=== PATIENT | female | born 1945 | race Caucasian/White ===

== ENCOUNTER → 2016-11-11 | Outpatient (CLI) | payer MEDICARE ==
--- NOTE | 2016-11-11 09:42 | WWHP ---
DATE OF SERVICE: 11/11/2016 CHIEF COMPLAINT: The patient is here for her routine gynecologic exam and mammogram. HPI: This is a 71-year-old G4, P3-0-1-3 with an LMP of 2000. The patient is without gynecologic complaints. PAST MEDICAL HISTORY: Chronic hypertension, arthritis, and osteopenia with focal osteoporosis. She is status post Fosamax use for 5 years. MEDICATIONS: 1. Hydrochlorothiazide 25 mg daily. 2. Lisinopril 20 mg daily. 3. Sulindac 200 mg daily. 4. Calcium 600 mg with vitamin D 1 daily. 5. Centrum Silver vitamin 1 daily. Allergies to PENICILLIN. 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 REVIEW OF SYSTEMS: She has gained about 20 pounds over the last year. She denies respiratory, cardiac, or GI problems. She denies maltreatment. She states she did trip over her dog once this year without serious injury. : She has occasional urinary leakage with coughing or laughing. PHYSICAL EXAM: Blood pressure 115/80. Height 5 feet 2 inches. Weight 258 pounds. Temperature 98.5, pulse 64. This a well-developed, heavyset white female who is alert and oriented x3 in no acute distress. HEENT is within normal limits. NECK: Supple without mass or thyromegaly. CHEST AND LUNGS: Clear to auscultation. HEART: Regular rate and rhythm. Breasts are without mass or discharge. Axillary exam is negative for adenopathy. BACK: Negative for CVA tenderness. ABDOMEN: Obese, soft, nontender, without palpable masses. PELVIC EXAM: External genitalia reveals mild to moderate atrophy without lesions. Cervix and vagina reveal mild to moderate atrophy without lesions. There is no evidence of prolapse. The uterus is midposition, nongravid size and nontender. There are no palpable adnexal masses or tenderness. Rectovaginal exam is negative for mass or tenderness and is negative for occult blood. EXTREMITIES: Nontender. IMPRESSION: 1. A 71-year-old menopausal female with normal gynecologic exam. 2. History of osteopenia with focal osteoporosis, status post 5 years of Fosamax in the past. PLAN: 1. Pap smear was performed. 2. Self breast examination was discussed. 3. Mammogram will be done today. 4. Osteoporosis management was discussed. 5. Bone density testing will be done today. 6. The patient did receive a flu shot earlier in the flu season. 7. She will return in one year.
--- NOTE | 2016-11-11 16:02 | BD ---
EXAMINATION TYPE: MG DEXA axial skeleton. DATE OF EXAM: 11/11/2016 10:13 AM COMPARISON: NONE CLINICAL HISTORY: Height: 5 FT 2 IN Weight: 256 FRAX RISK QUESTIONS: Alcohol (3 or more units per day): NO Family History (Parent hip fracture): NO Glucocorticoids (More than 3mos): NO (Ex: prednisone, prednisolone, methylprednisolone, dexamethasone, and hydrocortisone). History of Fracture in Adulthood: YES Secondary Osteoporosis: 1. Type 1 Diabetes: NO 2. Hyperthyroidism: NO 3. Menopause before 45: NO 4. Malnutrition: NO 5. Chronic liver disease: NO Rheumatoid Arthritis: NO Current Tobacco Use: NO RISK FACTORS HISTORY OF: Other Fractures since Age 52: YES When: 2001 LEFT FEMUR RIGHT ABOVE KNEE HAS A STEEL CAT Family History of Osteoporosis: YES Active: YES Postmenopausal woman: AGE 54 MEDICATIONS: Additional Medications: HYDROCHLOROTHIAZIDE, LISINOPRIL, SULINDAC,CALCIUM, MULTI VIT Additional History: EXAM MEASUREMENTS: Bone mineral densitometry was performed using the [employer]. Bone mineral density as measured about the Lumbar spine is: ----- L1-L4(G/cm2): 1.040 T Score Values are as follows: ----- L2: -1.4 ----- L3: -1.5 ----- L4: -0.5 ----- L1-L4: -1.2 Bone mineral density has: Decreased -0.3 % since study of: 2014 Bone mineral density about the R hip (g/cm2): 0.949 Bone mineral density about the L hip (g/cm2): 0.714 T Score values are as follows: -----R Neck: -0.6 -----L Neck: -2.3 -----R Intertrochanter: -0.2 -----L Intertrochanter: -2.4 Bone mineral density has: Increased 0.1 % since study of: 2014 IMPRESSION: Osteopenia (T Score between -2.5 and -1 as noted by T score values There is slightly increased risk of fracture and the patient may be considered for treatment. Re-Screen 1-2 years. NOTE: T-SCORE=SD OF THE YOUNG ADULT MEAN.
--- NOTE | 2016-11-12 09:20 | MM ---
Reason for exam: screening (asymptomatic). Last mammogram was performed 1 year and 1 month ago. History: Patient is postmenopausal. Physical Findings: A clinical breast exam by your physician is recommended on an annual basis and results should be correlated with mammographic findings. MG Screening Mammo w CAD Bilateral CC and MLO view(s) were taken. Prior study comparison: October 15, 2015, bilateral MG screening mammo w CAD. October 02, 2014, bilateral MG screening mammo w CAD. There are scattered fibroglandular densities. Finding: There are few typically benign round calcifications in both breasts. There is no discrete abnormality. ASSESSMENT: Benign, BI-RAD 2 RECOMMENDATION: Routine screening mammogram of both breasts in 1 year.
== END | disposition home or self-care (01) ==
LOC: WWCWWP 08:12
PROVIDERS: ATTEND Obstetrics & Gynecology
DX: Z12.31 Encounter for screening mammogram for malignant neoplasm of breast (principal); I10 Essential (primary) hypertension; M19.90 Unspecified osteoarthritis, unspecified site; M85.80 Other specified disorders of bone density and structure, unspecified site; M81.8 Other osteoporosis without current pathological fracture; Z88.0 Allergy status to penicillin; Z79.899 Other long term (current) drug therapy
CPT/HCPCS: 77080; G0202

== ENCOUNTER → 2017-12-07 | Outpatient (CLI) | payer MEDICARE ==
[2017-12-07 10:39] VITALS: BP 145/85; PULSE 60; RESP 20; TEMP 95.7; BMI 46.6
--- NOTE | 2017-12-07 11:26 | P.HPOB ---
History of Present Illness H&P Date: 12/07/17 Chief Complaint: The patient is here for her routine gynecologic exam and mammogram. This is a 72-year-old with an LMP of 2000. The patient is without gynecologic complaints. Review of Systems She has lost 3 pounds over the last year. She denies respiratory, cardiac, or GI problems. The patient also denies maltreatment or problems with falling. : the patient does have occasional urinary leakage with coughing or sneezing. There are also times when she has to get to the bathroom right away. Past Medical History Past Medical History: Hypertension Additional Past Medical History / Comment(s): History of osteopenia with focal osteoporosis. She discontinued Fosamax after 5 years of use in 2011. Also history of arthritis. 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 Last renetta 2016. Last Pap 2016 History of Any Multi-Drug Resistant Organisms: None Reported Past Surgical History: Section, Orthopedic Surgery Additional Past Surgical History / Comment(s): Left leg surgery. facial surgery. colonoscopy 2011. Past Anesthesia/Blood Transfusion Reactions: No Reported Reaction Past Psychological History: No Psychological Hx Reported Smoking Status: Never smoker Past Alcohol Use History: None Reported Past Drug Use History: None Reported Additional History: She is and retired. - Past Family History Mother Family Medical History: Congestive Heart Failure (CHF), Diabetes Mellitus Father Family Medical History: Cancer Additional Family Medical History / Comment(s): of colon cancer Brother(s) Family Medical History: Myocardial Infarction ([place]) Medications and Allergies Home Medications Medication Instructions Recorded Confirmed Type Calcium Carbonate/Vitamin D3 1 each PO DAILY 12/07/17 12/07/17 History [Calcium 500-Vit D3 600 Tablet] Hydrochlorothiazide 25 mg PO DAILY 12/07/17 12/07/17 History Lisinopril [Zestril] 20 mg PO DAILY 12/07/17 12/07/17 History Multivit-Min/Iron/Folic/Lutein 1 each PO DAILY 12/07/17 12/07/17 History [Centrum Silver Women Tablet] [place]-3/Dha/Epa/Fish Oil [Fish Oil 1 each PO DAILY 12/07/17 12/07/17 History 500 mg Softgel] Sulindac 300 mg PO BID 12/07/17 12/07/17 History Allergies Allergy/AdvReac Type Severity Reaction Status Date / Time Penicillins Allergy Rash/Hives Verified 12/07/17 10:43 Exam - Vital Signs Vital signs: Vital Signs Temp Pulse Resp BP 12/07/17 10:29 95.7 F L 60 20 145/85 Intake and Output 12/06/17 12/07/17 12/07/17 22:59 06:59 14:59 Other: Weight 115.666 kg Height 5'2" BMI 46.6. This is a well-developed heavyset white female who is alert and oriented times 3 in no acute distress. HEENT: Within normal limits. NECK: Supple without mass or thyromegaly. CHEST AND LUNGS: Clear to auscultation. HEART: Regular rate and rhythm. BREASTS: Are without mass or discharge. AXILLARY EXAM: Negative for adenopathy. BACK: Negative for CVA tenderness. ABDOMEN: Soft, nontender, without palpable masses. PELVIC EXAM: Normal external genitalia with mild to moderate atrophy. Cervix and vagina appear normal with mild atrophy. There is no unusual discharge. There is no evidence of prolapse. The uterus is midposition, nongravid size and nontender. There are no palpable adnexal masses or tenderness. Bimanual examination is somewhat limited secondary to her size. RECTAL EXAM: rectovaginal exam is negative for mass or tenderness and is negative for occult blood. EXTREMITIES: Nontender. IMPRESSION: 1. 72-year-old menopausal female with normal gynecologic exam. 2. History of osteopenia and focal osteoporosis status post 5 years use of Fosamax. PLAN: 1. Pap smear was deferred since she had a normal one last year. 2. Self breast examination was discussed. 3. Screening mammogram will be done today. 4. Osteoporosis management was discussed. We will plan a repeating bone density testing next year. 5. She did receive a flu shot last fall. 6. We have discussed her elevated blood pressure. I have recommended she checked her own blood pressure on a regular basis and follow-up with Dr. Almonte for blood pressure elevations. 7. She will return one year.
--- NOTE | 2017-12-09 09:04 | MM ---
Reason for exam: screening (asymptomatic). Last mammogram was performed 1 year and 1 month ago. History: Patient is postmenopausal. Physical Findings: A clinical breast exam by your physician is recommended on an annual basis and results should be correlated with mammographic findings. MG 3D Screening Mammo W/Cad Bilateral CC and MLO view(s) were taken. Prior study comparison: November 11, 2016, bilateral MG screening mammo w CAD. October 15, 2015, bilateral MG screening mammo w CAD. The breast tissue is almost entirely fat. No significant changes when compared with prior studies. ASSESSMENT: Benign, BI-RAD 2 RECOMMENDATION: Routine screening mammogram of both breasts in 1 year.
== END | disposition home or self-care (01) ==
LOC: WWCWWP 10:29
PROVIDERS: ATTEND Obstetrics & Gynecology
DX: Z12.31 Encounter for screening mammogram for malignant neoplasm of breast (principal)
CPT/HCPCS: 77063; 77067

== ENCOUNTER 2018-05-18 09:02 | Day surgery (SDC) | payer MEDICARE ==
[2018-05-16 15:42] VITALS: BMI 45.7
[~2018-05-18 09:02] MED LIST: LACTATED RINGERS 1,000 ML IV SCH
[2018-05-18 10:00] VITALS: RESP 18; TEMP 97.4
[2018-05-18] MEDS ORDERED: LIDOCAINE 1% 20 ML VIAL (10MG/ML) FOR IV START INTRADERMA ONE (10:22)
[2018-05-18] MEDS ORDERED: MIDAZOLAM 2 MG/2 ML VIAL ONE (10:24)
[2018-05-18] MEDS ORDERED: PROPOFOL 10 MG/ML 20 ML VIAL IV ONE (10:24)
[2018-05-18] MEDS ORDERED: fentaNYL (PF) 50 MCG/ML 2 ML AMP ONE (10:24)
--- NOTE | 2018-05-18 10:42 | P.PCN ---
Date of Procedure: 05/18/18 Procedure(s) Performed: BRIEF HISTORY: Patient is a 73-year-old pleasant white female, scheduled for an elective colonoscopy as a part of variation of prior history of colon polyps. PROCEDURE PERFORMED: Colonoscopy with snare polypectomy. PREOPERATIVE DIAGNOSIS: History of colon polyps. IV sedation per Anesthesia. PROCEDURE: After informed consent was obtained, the patient, was brought into the endoscopy unit. IV sedation was administered by Anesthesia under continuous monitoring. Digital rectal examination was normal. Initially the Olympus CF- 160 flexible video colonoscope was then inserted in the rectum, gradually advanced into the cecum without any difficulty. Careful examination was performed as the scope was gradually being withdrawn. Ileocecal valve and the appendiceal orifice were visualized and appeared normal. Prep was excellent. Mucosa of the cecum, ascending colon, transverse colon, descending colon, sigmoid colon, and rectum appeared normal. There was a 5 mm polyp noted in the sigmoid colon that was removed by snare polypectomy. Moderate sigmoid diverticula seen. Retroflexion was performed in the rectum and no lesions were seen. The patient tolerated the procedure well. IMPRESSION: 5 mm sigmoid colon polyp status post polypectomy Moderate sigmoidal reticulosis RECOMMENDATIONS: Findings of this examination were discussed with the patient is a family. She was advised to follow with the biopsy results and have have a repeat surveillance colonoscopy in 5 years .
[2018-05-18 11:05] VITALS: BP 105/66; PULSE 60
== END 2018-05-18 11:31 | disposition home or self-care (01) ==
LOC: ORWHC2ENDO 09:02
PROVIDERS: ATTEND Internal Medicine Gastroenterology
DX: Z12.11 Encounter for screening for malignant neoplasm of colon (principal); K63.5 Polyp of colon; K57.30 Diverticulosis of large intestine without perforation or abscess without bleeding; Z86.010 Personal history of colon polyps; I10 Essential (primary) hypertension; Z79.899 Other long term (current) drug therapy; Z88.0 Allergy status to penicillin
CPT/HCPCS: 88305; 45385; J2250; J3010; J2704

== ENCOUNTER → 2019-03-14 | Outpatient (CLI) | payer MEDICARE ==
[2019-03-14 09:20] VITALS: BP 114/78; PULSE 61; RESP 18; TEMP 97.9; BMI 47.0
--- NOTE | 2019-03-14 10:14 | P.HPOB ---
History of Present Illness H&P Date: 03/14/19 Chief Complaint: The patient is here for her routine gynecologic exam and ma mmogram. This is a 74-year-old with an LMP of 2000. The patient is without gynecologic complaints and denies any postmenopausal bleeding. Review of Systems She is gained about 2 pounds over the last year. She denies respiratory, cardiac and G.I. problems. She denies maltreatment. She did fall once about 2 months ago that caused some bruising, but no significant injury. : she does have slight urinary leakage with coughing or laughing and does wear protection because of this.. Past Medical History Past Medical History: Hypertension, Osteoarthritis (OA) Additional Past Medical History / Comment(s): Hx osteopenia,osteoporosis, status post Fosamax used for 5 years discontinued in 2011. History of Any Multi-Drug Resistant Organisms: None Reported Past Surgical History: Section, Orthopedic Surgery Additional Past Surgical History / Comment(s): Left leg surgery. facial surgery. colonoscopy 2018(multiple done. Next after 5 years) Past Anesthesia/Blood Transfusion Reactions: No Reported Reaction Past Psychological History: No Psychological Hx Reported Smoking Status: Never smoker Past Alcohol Use History: None Reported Past Drug Use History: None Reported Additional History: She is and retired. - Past Family History Mother Family Medical History: Congestive Heart Failure (CHF), Diabetes Mellitus Father Family Medical History: Cancer Additional Family Medical History / Comment(s): of colon cancer Brother(s) Family Medical History: Myocardial Infarction ([place]) Medications and Allergies Home Medications Medication Instructions Recorded Confirmed Type Calcium Carbonate/Vitamin D3 1 each PO DAILY 12/07/17 03/14/19 History [Calcium 500-Vit D3 600 Tablet] Hydrochlorothiazide 25 mg PO DAILY 12/07/17 03/14/19 History Lisinopril [Zestril] 20 mg PO DAILY 12/07/17 03/14/19 History Multivit-Min/Iron/Folic/Lutein 1 each PO DAILY 12/07/17 03/14/19 History [Centrum Silver Women Tablet] [place]-3/Dha/Epa/Fish Oil [Fish Oil 1 each PO DAILY 12/07/17 03/14/19 History 500 mg Softgel] Sulindac 300 mg PO BID 12/07/17 03/14/19 History Allergies Allergy/AdvReac Type Severity Reaction Status Date / Time Penicillins Allergy Rash/Hives Verified 03/14/19 09:31 Exam Vital Signs Temp Pulse Resp BP Pulse Ox 03/14/19 09:11 97.9 F 61 18 114/78 98 Intake and Output 03/13/19 03/14/19 03/14/19 22:59 06:59 14:59 Other: Weight 116.573 kg Height 5'2", weight 257 pounds, BMI 47.0. This is a well-developed well-nourished heavyset white female who is alert and oriented times 3 in no acute distress. HEENT: Within normal limits. NECK: Supple without mass or thyromegaly. CHEST AND LUNGS: Clear to auscultation. HEART: Regular rate and rhythm. BREASTS: Are without mass or discharge. AXILLARY EXAM: Negative for adenopathy. BACK: Negative for CVA tenderness. ABDOMEN: Soft, nontender, without palpable masses. PELVIC EXAM: Normal external genitalia with mild atrophy. Cervix and vagina appear normal with mild atrophy. There is no unusual discharge. There is no evidence of prolapse. The uterus is midposition, nongravid size and nontender. There are no palpable adnexal masses or tenderness. Bimanual examination is somewhat limited secondary to her size. RECTAL EXAM: rectovaginal exam is negative for mass or tenderness and is negative for occult blood. EXTREMITIES: Nontender. IMPRESSION: 1. 74-year-old menopausal female normal gynecologic exam. 2. History of osteopenia and focal osteoporosis status post 5 years use of Fosamax. PLAN: 1. Pap smears have been discontinued. She has not had any Pap smear problems and has been adequately screened. She is older than 65 years of age. 2. Self breast awareness was discussed with the patient. 3. Screening mammogram will be done today. 4. She does receive flu shots in the fall. 5. Osteoporosis prevention was discussed. I have stressed the importance of adequate calcium, vitamin D and regular exercise. Recommended amounts of calcium and vitamin D were also discussed. She would like to repeat the bone density test next year at her annual exam. 6.She was advised to return in 1-2 years for her well woman exam.
--- NOTE | 2019-03-15 10:03 | MM ---
Reason for exam: screening (asymptomatic). Last mammogram was performed 1 year and 3 months ago. History: Patient is postmenopausal. Physical Findings: A clinical breast exam by your physician is recommended on an annual basis and results should be correlated with mammographic findings. MG 3D Screening Mammo W/Cad Bilateral CC and MLO view(s) were taken. Prior study comparison: December 07, 2017, bilateral MG 3d screening mammo w/cad. November 11, 2016, bilateral MG screening mammo w CAD. The breast tissue is heterogeneously dense. This may lower the sensitivity of mammography. There is increased density and size of a left upper outer quadrant middle depth oval 3 x 5mm mass. Benign appearing bilateral calcifications. No suspicious abnormality on the right. ASSESSMENT: Incomplete: need additional imaging evaluation, BI-RAD 0 RECOMMENDATION: Ultrasound of the right breast. [facility] will attempt to contact patient to return for ultrasound.
== END ==
LOC: WWCWWP 08:59
PROVIDERS: ATTEND Obstetrics & Gynecology
DX: Z12.31 Encounter for screening mammogram for malignant neoplasm of breast (principal)
CPT/HCPCS: 77063; 77067

== ENCOUNTER → 2019-03-30 | Outpatient (CLI) | payer MEDICARE ==
--- NOTE | 2019-03-30 10:08 | USB ---
Reason for exam: additional evaluation requested from abnormal screening. History: Patient is postmenopausal. Physical Findings: Nurse did not find any significant physical abnormalities on exam. US Breast Workup Limited RT Right limited breast ultrasound including focal area of concern, retroareolar and axilla demonstrates a 0.9 x 0.5 x 0.9cm oval lesion at 10 o'clock, corresponds with mammographic finding, benign and ductal dilation at the posterior nipple. These results were verbally communicated with the patient and result sheet given to the patient on 03/30/19. ASSESSMENT: Benign, BI-RAD 2 RECOMMENDATION: Return to routine screening mammogram schedule for both breasts.
== END | disposition home or self-care (01) ==
LOC: RADUSWWP 09:21
PROVIDERS: ATTEND Obstetrics & Gynecology
DX: R92.8 Other abnormal and inconclusive findings on diagnostic imaging of breast (principal)

== ENCOUNTER → 2020-04-17 | Outpatient (CLI) | payer MEDICARE ==
[2020-04-17 10:16] VITALS: BP 123/79; PULSE 59; RESP 18; TEMP 98
--- NOTE | 2020-04-17 10:54 | P.HPOB ---
History of Present Illness H&P Date: 04/17/20 Chief Complaint: The patient is here for her routine gynecologic exam and ma mmogram. This is a 75-year-old 013 with an LMP of 2000. The patient is without gynecologic complaints and denies any postmenopausal bleeding. Review of Systems She has lost 7 pounds over the past year. She denies respiratory, cardiac and G.I. problems. She denies maltreatment or problems with falling. : She does experience urinary leakage to the point where she does wear a pad. Past Medical History Past Medical History: Hypertension, Osteoarthritis (OA) Additional Past Medical History / Comment(s): Hx osteopenia,osteoporosis, status post Fosamax used for 5 years discontinued in 2011. 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 History of Any Multi-Drug Resistant Organisms: None Reported Past Surgical History: Section, Orthopedic Surgery Additional Past Surgical History / Comment(s): Left leg surgery. facial surgery. colonoscopy 2018(Next after 5 years) Past Anesthesia/Blood Transfusion Reactions: No Reported Reaction Past Psychological History: No Psychological Hx Reported Smoking Status: Never smoker Past Alcohol Use History: None Reported Past Drug Use History: None Reported Additional History: She is and is not sexually active. She is retired. - Past Family History Mother Family Medical History: Congestive Heart Failure (CHF), Diabetes Mellitus Father Family Medical History: Cancer Additional Family Medical History / Comment(s): of colon cancer Brother(s) Family Medical History: Myocardial Infarction ([place]) Medications and Allergies Home Medications Medication Instructions Recorded Confirmed Type Calcium Carbonate/Vitamin D3 1 each PO DAILY 12/07/17 04/17/20 History [Calcium 500-Vit D3 600 Tablet] Multivit-Min/Iron/Folic/Lutein 1 each PO DAILY 12/07/17 04/17/20 History [Centrum Silver Women Tablet] [place]-3/Dha/Epa/Fish Oil [Fish Oil 1 each PO DAILY 12/07/17 04/17/20 History 500 mg Softgel] Sulindac 300 mg PO BID 12/07/17 04/17/20 History hydroCHLOROthiazide 25 mg PO QAM 12/07/17 04/17/20 History lisinopriL [Zestril] 20 mg PO QAM 12/07/17 04/17/20 History Allergies Allergy/AdvReac Type Severity Reaction Status Date / Time Penicillins Allergy Rash/Hives Verified 04/17/20 10:10 Exam Vital Signs Temp Pulse Resp BP Pulse Ox 04/17/20 10:13 98.0 F 59 L 18 123/79 98 Intake and Output 04/16/20 04/17/20 04/17/20 22:59 06:59 14:59 Other: Weight 113.398 kg Height 5 feet 1-1/2 inches, weight 250 pounds, BMI 46.5. This is a well-developed well-nourished heavyset white female who is alert and oriented times 3 in no acute distress. HEENT: Within normal limits. NECK: Supple without mass or thyromegaly. CHEST AND LUNGS: Clear to auscultation. HEART: Regular rate and rhythm. BREASTS: Are without mass or discharge. AXILLARY EXAM: Negative for adenopathy. BACK: Negative for CVA tenderness. ABDOMEN: Soft, nontender, without palpable masses. PELVIC EXAM: External genitalia: The left labia minora is more prominent than the right labia minora and appears benign, soft and nontender. External genitalia is otherwise unremarkable. Cervix and vagina appear normal with mild to moderate atrophy. There is no unusual discharge. There is no evidence of prolapse. The uterus is midposition, nongravid size and nontender. There are no palpable adnexal masses or tenderness. Bimanual examination is somewhat limited secondary to her size. RECTAL EXAM: Rectovaginal exam is negative for mass or tenderness and is negative for occult blood. EXTREMITIES: Nontender. IMPRESSION: 1. 75-year-old menopausal female with normal gynecologic exam. 2. History of osteoporosis status post 5 years use of Fosamax. PLAN: 1. Pap smears have been discontinued based on her age with adequate screening in the past . 2. Self breast awareness was discussed with the patient. 3. Screening mammogram will be done today. 4. She does receive flu shots in the fall. 5. Osteoporosis management was discussed. I have stressed the importance of adequate calcium, vitamin D and regular exercise. Recommended amounts of calcium and vitamin D were also discussed. Since she has completed 5 years with a bisphosphonate, we will continue to keep her off of medications for this if bone density testing remained stable. Bone density testing has been done today. 6. The patient was advised to return in 1-2 years for her well woman examination.
--- NOTE | 2020-04-17 16:20 | BD ---
EXAMINATION TYPE: Axial Bone Density DATE OF EXAM: 04/17/2020 COMPARISON: 11/11/2016 CLINICAL HISTORY: 75-year-old female postmenopausal screening Height: 61 IN Weight: 247 LBS FRAX RISK QUESTIONS: History of Fracture in Adulthood: LT FEMUR(NEAR KNEE) AGE 58 RISK FACTORS HISTORY OF: Family History of Osteoporosis: YES MOTHER Active: MODERATE Diet low in dairy products/other sources of calcium: YES Postmenopausal woman: AGE 55 MEDICATIONS: Osteoporosis Medications: NOT NOW Which medication: Fosamax How Long: TOOK FOR 5 YEARS Additional Medications: CALCIUM, VIT D, BLOOD PRESSURE MED, ARTHRITIS MEDS, WATER PILL EXAM MEASUREMENTS: Bone mineral densitometry was performed using the [employer] System. Bone mineral density as measured about the Lumbar spine is: ----- L1-L4(G/cm2): 1.030 T Score Values are as follows: ----- L2: -1.6 ----- L3: -1.7 ----- L4: -0.2 ----- L1-L4: -1.2 Bone mineral density has: Decreased -0.6% since study of: 11/11/2016 Bone mineral density about the R hip (g/cm2): 0.980 Bone mineral density about the L hip (g/cm2): 0.670 T Score values are as follows: -----R Neck: -0.4 -----L Neck: -2.6 -----R Total: 0.2 -----L Total: -2.3 Bone mineral density has: Decreased -1.8% since study of: 11/11/2016 IMPRESSION: Osteoporosis (T Score less than -2.5). There is increased fracture risk and therapy is usually indicated based on age. Re-Screen 1-2 years. NOTE: T-SCORE=SD OF THE YOUNG ADULT MEAN.
--- NOTE | 2020-04-19 08:47 | MM ---
Reason for exam: screening (asymptomatic). Last mammogram was performed 1 year and 1 month ago. History: Patient is postmenopausal. Physical Findings: A clinical breast exam by your physician is recommended on an annual basis and results should be correlated with mammographic findings. MG 3D Screening Mammo W/Cad Bilateral CC, MLO, and XCCL view(s) were taken. Prior study comparison: March 14, 2019, bilateral MG 3d screening mammo w/cad. December 07, 2017, bilateral MG 3d screening mammo w/cad. November 11, 2016, bilateral MG screening mammo w CAD. There are scattered fibroglandular densities. There is chronic nodularity bilaterally. No significant changes when compared with prior studies. ASSESSMENT: Benign, BI-RAD 2 RECOMMENDATION: Routine screening mammogram of both breasts in 1 year.
== END | disposition home or self-care (01) ==
LOC: RADBDWWP 09:09
PROVIDERS: ATTEND Obstetrics & Gynecology
DX: Z12.31 Encounter for screening mammogram for malignant neoplasm of breast (principal); M81.0 Age-related osteoporosis without current pathological fracture
CPT/HCPCS: 77063; 77067; 77080

== ENCOUNTER → 2021-05-20 | Outpatient (CLI) | payer MEDICARE ==
[2021-05-20 14:18] VITALS: BP 125/84; PULSE 70; RESP 18; TEMP 97.9
--- NOTE | 2021-05-20 14:49 | P.HPOB ---
History of Present Illness H&P Date: 05/20/21 Chief Complaint: The patient is here for her routine gynecologic exam and ma mmogram. This is a 76-year-old with an LMP of 2000. The patient is without gynecologic complaints. Review of Systems She has lost about 10 pounds over the past year. She denies respiratory, cardiac and G.I. problems. She denies maltreatment or problems with falling. : She has occasional slight leakage and does wear a pad for this. Past Medical History Past Medical History: Hypertension, Osteoarthritis (OA) Additional Past Medical History / Comment(s): Hx osteoporosis status post Fosamax used for 5 years discontinued in 2011. 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 History of Any Multi-Drug Resistant Organisms: None Reported Past Surgical History: Section, Orthopedic Surgery Additional Past Surgical History / Comment(s): Left leg surgery. facial surgery. colonoscopy 2018(Next after 5 years) Past Anesthesia/Blood Transfusion Reactions: No Reported Reaction Past Psychological History: No Psychological Hx Reported Smoking Status: Never smoker Past Alcohol Use History: None Reported Past Drug Use History: None Reported Additional History: She is and is not sexually active. She is retired. - Past Family History Mother Family Medical History: Congestive Heart Failure (CHF), Diabetes Mellitus Father Family Medical History: Cancer Additional Family Medical History / Comment(s): of colon cancer Brother(s) Family Medical History: Myocardial Infarction (ID) Medications and Allergies Home Medications Medication Instructions Recorded Confirmed Type Calcium Carbonate/Vitamin D3 1 each PO DAILY 12/07/17 05/20/21 History [Calcium 500-Vit D3 600 Tablet] Multivit-Min/Iron/Folic/Lutein 1 each PO DAILY 12/07/17 05/20/21 History [Centrum Silver Women Tablet] [place]-3/Dha/Epa/Fish Oil [Fish Oil 1 each PO DAILY 12/07/17 05/20/21 History 500 mg Softgel] Sulindac 300 mg PO BID 12/07/17 05/20/21 History hydroCHLOROthiazide 25 mg PO QAM 12/07/17 05/20/21 History lisinopriL [Zestril] 20 mg PO QAM 12/07/17 05/20/21 History Allergies Allergy/AdvReac Type Severity Reaction Status Date / Time Penicillins Allergy Rash/Hives Verified 05/20/21 14:11 Exam Vital Signs Temp Pulse Resp BP Pulse Ox 05/20/21 14:12 97.9 F 70 18 125/84 98 Intake and Output 05/19/21 05/20/21 05/20/21 22:59 06:59 14:59 Other: Weight 108.862 kg Height 5 feet 1-1/2 inches, weight 240 pounds, BMI 44.6. This is a well-developed well-nourished heavyset white female who is alert and oriented times 3 in no acute distress. HEENT: Within normal limits. NECK: Supple without mass or thyromegaly. CHEST AND LUNGS: Clear to auscultation. HEART: Regular rate and rhythm. BREASTS: Are without mass or discharge. AXILLARY EXAM: Negative for adenopathy. BACK: Negative for CVA tenderness. ABDOMEN: Soft, obese, nontender, without palpable masses. PELVIC EXAM: Normal external genitalia with mild to moderate atrophy. Cervix and vagina appear normal with mild to moderate atrophy. There is no unusual discharge. There is no evidence of prolapse. The uterus is midposition, nongravid size and nontender. There are no palpable adnexal masses or tenderness. RECTAL EXAM: Rectovaginal exam is negative for mass or tenderness and is negative for occult blood. EXTREMITIES: Nontender. IMPRESSION: 1. 76-year-old menopausal female with normal gynecologic exam. 2. History of osteoporosis status post 5 years use of Fosamax in the past. PLAN: 1. Pap smears have been discontinued based on her age and adequate screening in the past. 2. Self breast awareness was discussed with the patient. We have also discus sed symptoms associated with inflammatory breast cancer. 3. Screening mammogram will be done today. 4. Osteoporosis management was discussed. I have stressed the importance of adequate calcium, vitamin D and regular exercise. Recommended amounts of calcium and vitamin D were also discussed. We will plan on repeating bone density testing next year. 5. She has completed her Covid vaccination series. 6. The patient was advised to return in 1-2 years for her well woman examination.
== END ==
LOC: WWCWWP 13:58
PROVIDERS: ATTEND Obstetrics & Gynecology
DX: Z12.31 Encounter for screening mammogram for malignant neoplasm of breast (principal); Z01.419 Encounter for gynecological examination (general) (routine) without abnormal findings; I10 Essential (primary) hypertension; M19.90 Unspecified osteoarthritis, unspecified site; Z87.310 Personal history of (healed) osteoporosis fracture; Z79.899 Other long term (current) drug therapy; Z88.0 Allergy status to penicillin; Z78.0 Asymptomatic menopausal state
CPT/HCPCS: 77063; 77067

== ENCOUNTER → 2021-06-23 | Outpatient (CLI) | payer MEDICARE ==
--- NOTE | 2021-06-23 12:49 | US ---
EXAMINATION TYPE: US kidneys/renal and bladder DATE OF EXAM: 06/23/2021 COMPARISON: NONE CLINICAL HISTORY: N18.9 Chronic Kidney Disease. EXAM MEASUREMENTS: Right Kidney: 10.0 x 4.4 x 4.8 cm Left Kidney: 10.1 x 5.0 x 4.5 cm Right Kidney: No hydronephrosis or masses seen Left Kidney: No hydronephrosis or masses seen Bladder: wnl Bilateral Jets seen: yes There is no evidence for hydronephrosis at this point in time. No nephrolithiasis is seen. No deborah s are identified. The urinary bladder is anechoic. Bilateral ureteral jets are seen. IMPRESSION: No definite sonographic abnormality of the kidneys or urinary bladder.
== END | disposition home or self-care (01) ==
LOC: RADUSWWP 12:21
PROVIDERS: ATTEND Family Medicine
DX: N18.9 Chronic kidney disease, unspecified (principal)
CPT/HCPCS: 76770

== ENCOUNTER → 2021-09-25 | Outpatient (CLI) | payer MEDICARE ==
[2021-09-25 08:30] LABS: Appearance,Urine Clear (Clear); Bacteria,Urine Moderate /hpf; Bilirubin,Urine Negative (Negative); Blood,Urine Negative (Negative); Color,Urine Light Yellow; Glucose,Urine (UA) Negative (Negative); Ketones,Urine Negative (Negative); Leukocyte Esterase,Urine Trace (Negative); Mucus,Urine Rare /hpf; Nitrite,Urine Negative (Negative); PH, Urine 6.5 (5.0-8.0); Protein,Urine Negative (Negative); RBC,Urine <1 /hpf (0-5); Specific Gravity,Urine 1.013 (1.001-1.035); Squamous Epithelial Cell,Urine 1 /hpf (0-4); Urobilinogen,Urine <2.0 mg/dL (<2.0); WBC,Urine 3 /hpf (0-5)
[2021-09-25 10:40] LABS: HCT 38.7 % (37.2-46.3); HGB 12.2 g/dL (12.0-15.0); MCH 30.7 pg (27.0-32.0); MCHC 31.5 g/dL (32.0-37.0); MCV 97.5 fL (80.0-97.0); Mean Platelet Volume 12.8 fL (9.5-12.2); Platelet Count 158 X 10*3/uL (140-440); RBC 3.97 X 10*6/uL (4.10-5.20); RDW 12.4 % (11.5-14.5); WBC 4.85 X 10*3/uL (4.50-10.00)
[2021-09-25 13:08] LABS: % Iron Saturation 23.28 (12.00-45.00)
[2021-09-25 16:28] LABS: African American GFR (CKD) 52.6 (60.0-200.0); Albumin 4.1 g/dL (3.8-4.9); Albumin/Globulin Ratio 1.43 (1.60-3.17); Anion Gap 17.2 mmol/L (10.00-18.00); BUN/Creat Ratio 32.46 Ratio (12.00-20.00); Blood Urea Nitrogen 38.3 mg/dL (9.0-27.0); Calcium 9.7 mg/dL (8.7-10.3); Ferritin 80.9 ng/mL (10.0-291.0); Globulin 2.9 g/dL (1.6-3.3); Magnesium 2.1 mg/dL (1.5-2.4); Non-African American GFR(CKD) 45.4 (60.0-200.0); Phosphorus 3.5 mg/dL (2.4-5.1); Potassium 4.9 mmol/L (3.5-5.5); Total Bilirubin 0.3 mg/dL (0.30-1.20); Uric Acid 7.7 mg/dL (2.9-7.7)
== END | disposition home or self-care (01) ==
LOC: LABWHC1 07:14
PROVIDERS: ATTEND Internal Medicine
DX: N25.81 Secondary hyperparathyroidism of renal origin (principal); N18.31 Chronic kidney disease, stage 3a; D64.9 Anemia, unspecified; N39.0 Urinary tract infection, site not specified; E55.9 Vitamin D deficiency, unspecified; M10.9 Gout, unspecified
CPT/HCPCS: 36415; 80053; 81001; 82306; 82728; 83540; 83550; 83735; 83970; 84100; 84550; 85027

== ENCOUNTER → 2022-01-23 | Outpatient (CLI) | payer MEDICARE ==
[2022-01-23 15:28] LABS: ALT 16 U/L (8-44); AST 19 U/L (13-35); African American GFR (CKD) 56.7 (60.0-200.0); Albumin 4.3 g/dL (3.8-4.9); Albumin/Globulin Ratio 1.72 (1.60-3.17); Alkaline Phosphatase 47 U/L (41-126); BUN/Creat Ratio 32.25 Ratio (12.00-20.00); Blood Urea Nitrogen 35.8 mg/dL (9.0-27.0); Carbon Dioxide 28.5 mmol/L (20.0-27.5); Chloride 104 mmol/L (96-109); Chol/HDL Ratio 3.52 Ratio; Globulin 2.5 g/dL (1.6-3.3); Glucose 104 mg/dL (70-110); Non-African American GFR(CKD) 48.9 (60.0-200.0); Potassium 5.5 mmol/L (3.5-5.5); Sodium 141 mmol/L (135-145); Total Protein 6.8 g/dL (6.2-8.2)
[2022-01-23 15:34] LABS: Basophils # (A) 0.03 X 10*3/uL (0.00-0.10); Basophils % (A) 0.6 %; Eosinophils % (A) 1.9 %; HCT 40.2 % (37.2-46.3); HGB 12.3 g/dL (12.0-15.0); Immature Grans, Automated 0.2 %; Lymphocytes # (A) 2.09 X 10*3/uL (0.90-5.00); Lymphocytes % (A) 39.4 %; MCH 29.8 pg (27.0-32.0); MCHC 30.6 g/dL (32.0-37.0); MCV 97.3 fL (80.0-97.0); Mean Platelet Volume 12.7 fL (9.5-12.2); Monocytes # (A) 0.36 X 10*3/uL (0.20-1.00); Monocytes % (A) 6.8 %; NRBC Per 100 WBC 0 /100 WBCS (0.0-0.0); Neutrophils # (A) 2.72 X 10*3/uL (1.80-7.70); Neutrophils % (A) 51.1 %; Platelet Count 164 X 10*3/uL (140-440); RBC 4.13 X 10*6/uL (4.10-5.20); RDW 12.7 % (11.5-14.5); WBC 5.31 X 10*3/uL (4.50-10.00)
== END | disposition home or self-care (01) ==
LOC: LABWHC1 07:20
PROVIDERS: ATTEND Family Medicine
DX: Z11.59 Encounter for screening for other viral diseases (principal); I10 Essential (primary) hypertension
CPT/HCPCS: 36415; 80053; 80061; 84439; 84443; 85025; 86803

== ENCOUNTER → 2022-02-17 | Outpatient (CLI) | payer MEDICARE ==
[2022-02-17 14:47] LABS: HCT 40.9 % (37.2-46.3); HGB 12.7 g/dL (12.0-15.0); MCH 30.7 pg (27.0-32.0); MCHC 31.1 g/dL (32.0-37.0); MCV 98.8 fL (80.0-97.0); NRBC Per 100 WBC 0 /100 WBCS (0.0-0.0); Platelet Count 179 X 10*3/uL (140-440); RBC 4.14 X 10*6/uL (4.10-5.20); RDW 12.8 % (11.5-14.5); WBC 5.06 X 10*3/uL (4.50-10.00)
[2022-02-17 14:54] LABS: ALT 16 U/L (8-44); AST 15 U/L (13-35); African American GFR (CKD) 57.9 (60.0-200.0); Albumin 4.3 g/dL (3.8-4.9); Albumin/Globulin Ratio 1.71 (1.60-3.17); Alkaline Phosphatase 44 U/L (41-126); BUN/Creat Ratio 34.86 Ratio (12.00-20.00); Calcium 9.5 mg/dL (8.7-10.3); Carbon Dioxide 28.1 mmol/L (20.0-27.5); Chloride 103 mmol/L (96-109); Globulin 2.5 g/dL (1.6-3.3); Glucose 98 mg/dL (70-110); Magnesium 2.3 mg/dL (1.5-2.4); Phosphorus 3.6 mg/dL (2.4-5.1); Potassium 5.3 mmol/L (3.5-5.5); Sodium 140 mmol/L (135-145); Total Bilirubin <0.15 mg/dL (0.30-1.20); Total Protein 6.8 g/dL (6.2-8.2); Uric Acid 7.5 mg/dL (2.9-7.7)
[2022-02-17 15:44] LABS: Appearance,Urine Cloudy (Clear); Bilirubin,Urine Negative (Negative); Blood,Urine Negative (Negative); Color,Urine Yellow (Yellow); Ketones,Urine Negative (Negative); Nitrite,Urine Negative (Negative); PH, Urine 6.5 (5.0-8.0); Specific Gravity,Urine 1.016 (1.001-1.030); Urobilinogen,Urine 0.2 (0.2,1.0)
[2022-02-17 15:46] LABS: Bacteria,Urine 4+ /HPF (None Seen)
== END | disposition home or self-care (01) ==
LOC: LABWHC1 07:26
PROVIDERS: ATTEND Nurse Practitioner Family
DX: N25.81 Secondary hyperparathyroidism of renal origin (principal); N18.31 Chronic kidney disease, stage 3a; D64.9 Anemia, unspecified; E55.9 Vitamin D deficiency, unspecified; M10.9 Gout, unspecified
CPT/HCPCS: 36415; 80053; 81001; 82306; 83735; 83970; 84100; 84550; 85027

== ENCOUNTER → 2022-06-09 | Outpatient (CLI) | payer MEDICARE ==
--- NOTE | 2022-06-09 09:07 | BD ---
EXAMINATION TYPE: Axial Bone Density DATE OF EXAM: 06/09/2022 COMPARISON: Prior study 2019 CLINICAL HISTORY: 77 years year old Female. ICD-10 CODE: Z780 ASYMPTOMATIC [place] Height: 61.5 Weight: 233.5 FRAX RISK QUESTIONS: Alcohol (3 or more units per day): NO Family History (Parent hip fracture): NO Glucocorticoids (More than 3mos): NO History of Fracture in Adulthood: LT FEMUR, Secondary Osteoporosis: 1. Type 1 Diabetes: NO 2. Hyperthyroidism: NO 3. Menopause before 45: NO 4. Malnutrition: NO 5. Chronic liver disease: NO Rheumatoid Arthritis: NO Current Tobacco Use: NO RISK FACTORS HISTORY OF: Hip Fracture (Right/Left): NO Spine Fracture: NO History of Wrist Fracture: NO Surgery to Spine/Hip(right/left)/Wrist (right/left): NO Family History of Osteoporosis: MOTHER Active: NO Diet low in dairy products/other sources of calcium: NO Postmenopausal woman: YES Take estrogen and/or progesterone medications: NO Lost more than 2 inches in height since high school: NO Frequent falls: NO Poor Health: NO Hyperparathyroidism: NO Adrenal Insufficiency: NO MEDICATIONS: Prednisone or other Steroids: NO Thyroid Medications: NO Osteoporosis Medications:FOSAMAX WEEKLY How Long: PAST YEAR Additional Medications: FOSAMAX, BP MEDS, MULTI VIT., FISH OIL, VIT D, CALCIUM EXAM MEASUREMENTS: Bone mineral densitometry was performed using the [employer]eg[employer] System. Bone mineral density as measured about the Lumbar spine is: ----- L1-L4(G/cm2): 1.049 T Score Values are as follows: ----- L1: -1.8 ----- L2: -1.5 ----- L3: -1.2 ----- L4: -0.1 ----- L1-L4: -1.1 Bone mineral density has: Increased % since study of: 2019 Bone mineral density about the R hip (g/cm2): 0.994 Bone mineral density about the L hip (g/cm2): 0.650 T Score values are as follows: -----R Neck: -0.3 -----L Neck: -2.8 -----R Total: 0.2 -----L Total: -2.1 Bone mineral density has: Increased % since study of: 2020 FRAX%s: The graph provided illustrates a 24.2% chance for a major osteoporotic fx and a 7.7% chance f or the hips probability for fx in 10 years time. IMPRESSION: Osteoporosis (T Score less than -2.5) is redemonstrated. There is increased fracture risk and therapy is usually indicated based on age. Re-Screen 1-2 years. NOTE: T-SCORE=SD OF THE YOUNG ADULT MEAN.
--- NOTE | 2022-06-10 19:13 | MM ---
Reason for Exam: Screening (asymptomatic). Last mammogram was performed 1 year(s) and 1 month(s) ago. Patient History: Menarche at age 15. First Full-Term at age 26. Postmenopausal. Risk Values: Jeimy 5 year model risk: 1.6%. NCI Lifetime model risk: 3.4%. Prior Study Comparison: 03/14/2019 Bilateral Screening Mammogram, [facility]. 04/17/2020 Bilateral Screening Mammogram, [facility]. 05/20/2021 Bilateral Screening Mammogram, [facility]. Tissue Density: There are scattered fibroglandular densities. Findings: Analyzed By CAD. Chronic nodularity is within the left breast. Benign calcifications are present bilaterally. No suspicious groups of microcalcifications, spiculated or lobular masses, architectural distortion or other secondary signs of malignancy are mammographically apparent. Overall Assessment: Benign, BI-RAD 2 Management: Screening Mammogram of both breasts in 1 year. A negative mammogram report should not preclude additional follow up of suspicious palpable abnormalities. Patient should continue monthly self breast exam. A clinical breast exam by your physician is recommended on an annual basis and results should be correlated with mammographic findings. Electronically signed and approved by: Diego Dumas D.O. Radiologis
== END | disposition home or self-care (01) ==
LOC: RADMAMWWP 07:39
PROVIDERS: ATTEND Family Medicine
DX: Z12.31 Encounter for screening mammogram for malignant neoplasm of breast (principal); M81.0 Age-related osteoporosis without current pathological fracture; Z78.0 Asymptomatic menopausal state
CPT/HCPCS: 77063; 77067; 77080

== ENCOUNTER → 2022-07-31 | Outpatient (CLI) | payer MEDICARE | END | disposition home or self-care (01) | LOC: LABWHC1 07:27 | PROVIDERS: ATTEND Internal Medicine | DX: E87.5 Hyperkalemia (principal) | CPT/HCPCS: 36415; 84132 ==

== ENCOUNTER → 2022-11-30 | Outpatient (CLI) | payer MEDICARE ==
[2022-11-30 12:00] LABS: Basophils # (A) 0.04 X 10*3/uL (0.00-0.10); Basophils % (A) 0.7 %; Eosinophils # (A) 0.15 X 10*3/uL (0.04-0.35); Eosinophils % (A) 2.7 %; HCT 41.4 % (37.2-46.3); HGB 12.5 g/dL (12.0-15.0); Immature Grans, Automated 0.2 %; Lymphocytes # (A) 2.28 X 10*3/uL (0.90-5.00); Lymphocytes % (A) 40.4 %; MCH 29.8 pg (27.0-32.0); MCHC 30.2 g/dL (32.0-37.0); MCV 98.6 fL (80.0-97.0); Monocytes # (A) 0.38 X 10*3/uL (0.20-1.00); Monocytes % (A) 6.7 %; NRBC Per 100 WBC 0 /100 WBCS (0.0-0.0); Neutrophils # (A) 2.78 X 10*3/uL (1.80-7.70); Neutrophils % (A) 49.3 %; Platelet Count 249 X 10*3/uL (140-440); RDW 12.4 % (11.5-14.5); WBC 5.64 X 10*3/uL (4.50-10.00)
[2022-11-30 12:31] LABS: Ferritin 80.4 ng/mL (10.0-291.0)
[2022-11-30 12:32] LABS: Chol/HDL Ratio 3.09 Ratio; LDL Cholesterol,Calculated 102.5 mg/dL (0.0-131.0)
[2022-11-30 13:45] LABS: Appearance,Urine Clear (Clear); Bilirubin,Urine Negative (Negative); Blood,Urine Negative (Negative); Color,Urine Yellow (Yellow); Ketones,Urine Negative (Negative); Nitrite,Urine Negative (Negative); Specific Gravity,Urine 1.022 (1.001-1.030); Urobilinogen,Urine 0.2 (0.2,1.0)
[2022-11-30 13:53] LABS: Microalbumin Creatinine Ratio <30 mg/g Creat (0-30)
[2022-11-30 13:59] LABS: Bacteria,Urine None Seen /HPF (None Seen)
[2022-11-30 18:44] LABS: % Iron Saturation 21.51 (12.00-45.00); ALT 13 U/L (8-44); AST 15 U/L (13-35); African American GFR (CKD) 59.5 (60.0-200.0); Albumin 4.1 g/dL (3.8-4.9); Albumin/Globulin Ratio 1.54 (1.60-3.17); Alkaline Phosphatase 56 U/L (41-126); BUN/Creat Ratio 31.13 Ratio (12.00-20.00); Calcium 9.7 mg/dL (8.7-10.3); Chloride 102 mmol/L (96-109); Globulin 2.7 g/dL (1.6-3.3); Glucose 95 mg/dL (70-110); Iron 75 ug/dL (50-170); Magnesium 2.1 mg/dL (1.5-2.4); Non-African American GFR(CKD) 51.3 (60.0-200.0); Phosphorus 3.1 mg/dL (2.4-5.1); Sodium 141 mmol/L (135-145); Total Bilirubin <0.15 mg/dL (0.30-1.20); Total Iron Binding Capacity 350 ug/dL (228-460); Total Protein 6.8 g/dL (6.2-8.2); Uric Acid 6.9 mg/dL (2.9-7.7)
== END | disposition home or self-care (01) ==
LOC: LABWHC1 07:03
PROVIDERS: ATTEND Internal Medicine
DX: N18.31 Chronic kidney disease, stage 3a (principal); D63.1 Anemia in chronic kidney disease; N39.0 Urinary tract infection, site not specified; E21.3 Hyperparathyroidism, unspecified; E55.9 Vitamin D deficiency, unspecified; M10.9 Gout, unspecified; E78.5 Hyperlipidemia, unspecified; R80.9 Proteinuria, unspecified
CPT/HCPCS: 36415; 80053; 80061; 81001; 82043; 82306; 82570; 82728; 83540; 83550; 83735; 83970; 84100; 84443; 84550; 85025

== ENCOUNTER → 2023-05-03 | Outpatient (CLI) | payer MEDICARE ==
[2023-05-03 11:06] LABS: HCT 40.8 % (37.2-46.3); HGB 13.1 d/dL (12.0-15.0); MCH 31.4 pg (27.0-32.0); MCHC 32.1 d/dL (32.0-37.0); MCV 97.8 FL (80.0-97.0); Mean Platelet Volume 12.6 FL (9.5-12.2); NRBC Per 100 WBC 0 X 10*3/uL (0.00-0.01); Platelet Count 173 X 10*3/uL (140-440); RBC 4.17 X 10*6/uL (4.10-5.20); RDW 12.7 % (11.5-14.5); WBC 4.92 X 10*3/uL (4.50-10.00)
[2023-05-03 11:28] LABS: Appearance,Urine Clear (Clear); Bilirubin,Urine Negative (Negative); Blood,Urine Negative (Negative); Color,Urine Yellow (Yellow); Ketones,Urine Negative (Negative); Nitrite,Urine Negative (Negative); PH, Urine 6.5; Specific Gravity,Urine 1.018 (1.001-1.030); Urobilinogen,Urine 0.2 E.U./DL
[2023-05-03 11:32] LABS: ALT 16 U/L (8-44); AST 18 U/L (13-35); Albumin 4.2 d/dL (3.8-4.9); Albumin/Globulin Ratio 1.75 Ratio (1.60-3.17); Alkaline Phosphatase 42 U/L (41-126); BUN/Creat Ratio 26.18 Ratio (12.00-20.00); Blood Urea Nitrogen 28.8 mg/dL (9.0-27.0); Calcium 9.5 mg/dL (8.7-10.3); Carbon Dioxide 28.1 mmol/L (21.6-31.8); Chloride 104 mmol/L (96-109); Ferritin 71.3 ng/mL (10.0-291.0); Globulin 2.4 d/dL (1.6-3.3); Glucose 99 mg/dL (70-110); Iron 104 UG/DL (50-170); Magnesium 2.1 mg/dL (1.5-2.4); Phosphorus 3.2 mg/dL (2.4-5.1); Sodium 141 mmol/L (135-145); Total Bilirubin 0.3 mg/dL (0.3-1.2); Total Iron Binding Capacity 321 UG/DL (228-460); Total Protein 6.6 d/dL (6.2-8.2); Uric Acid 7.5 mg/dL (2.9-7.7)
[2023-05-03 11:42] LABS: Bacteria,Urine None Seen (None Seen)
[2023-05-03 13:00] LABS: Microalbumin Creatinine Ratio <9 mg/g Cr (0-30)
== END | disposition home or self-care (01) ==
LOC: LABWHC1 07:04
PROVIDERS: ATTEND Internal Medicine
DX: N18.31 Chronic kidney disease, stage 3a (principal); D63.1 Anemia in chronic kidney disease; N39.0 Urinary tract infection, site not specified; N25.81 Secondary hyperparathyroidism of renal origin; E55.9 Vitamin D deficiency, unspecified; M10.9 Gout, unspecified; R80.9 Proteinuria, unspecified
CPT/HCPCS: 36415; 80053; 81001; 82043; 82306; 82570; 82728; 83540; 83550; 83735; 83970; 84100; 84550; 85027

== ENCOUNTER → 2023-06-10 | Outpatient (CLI) | payer MEDICARE ==
--- NOTE | 2023-06-11 09:20 | MM ---
Reason for Exam: Screening (asymptomatic). Last screening mammogram was performed 12 month(s) ago. Patient History: Menarche at age 15. First Full-Term at age 26. Postmenopausal. Risk Values: Jeimy 5 year model risk: 1.6%. NCI Lifetime model risk: 3.2%. Prior Study Comparison: 04/17/2020 Bilateral Screening Mammogram, [facility]. 05/20/2021 Bilateral Screening Mammogram, [facility]. 06/09/2022 Bilateral MG 3D screening mammo w/cad, [facility]. Tissue Density: The breast tissue is heterogeneously dense. This may lower the sensitivity of mammography. Findings: Analyzed By CAD. There is no suspicious group of microcalcifications or new suspicious mass in either breast. Overall Assessment: Benign, BI-RAD 2 Management: Screening Mammogram of both breasts in 1 year. . Patient should continue monthly self-breast exams. A clinical breast exam by your physician is recommended on an annual basis. This exam should not preclude additional follow-up of suspicious palpable abnormalities. Note on Jeimy scores and lifetime risk: 1. A Jeimy score greater than 3% is considered moderate risk. If this is the case, consider specialist referral to assess eligibility for a risk reducing agent. 2. If overall lifetime risk for the development of breast cancer is 20% or higher, the patient may qualify for future screening with alternating mammogram and breast MRI. Electronically signed and approved by: Brian Nieto M.D. Radiologis
== END | disposition home or self-care (01) ==
LOC: RADMAMWWP 07:33
PROVIDERS: ATTEND Family Medicine
DX: Z12.31 Encounter for screening mammogram for malignant neoplasm of breast (principal); Z78.0 Asymptomatic menopausal state
CPT/HCPCS: 77063; 77067

== ENCOUNTER → 2023-12-15 | Outpatient (CLI) | payer MEDICARE ==
--- NOTE | 2023-12-16 13:15 | US ---
EXAMINATION TYPE: US kidneys/renal and bladder DATE OF EXAM: 12/15/2023 COMPARISON: 06/23/2021 CLINICAL INDICATION: Female, 78 years old with history of N18.31 CKD, STAGE 3A; No pain. Abnormal lab s. EXAM MEASUREMENTS: Right Kidney: 8.2 x 4.8 x 4.2 cm Left Kidney: 10.3 x 4.0 x 5.6 cm Right Kidney: Lateral lower hypoechoic lesion = 1.2 x 1.1 x 1.0 cm. Left Kidney: No hydronephrosis or masses seen Bladder: Distended, anechoic Left jet seen Renal cortical thickness is maintained. Increased echogenicity of the renal cortex. IMPRESSION: 1. No evidence of hydronephrosis or nephrolithiasis. Too small to characterize lower pole right renal lesion. Lesions indeterminate by ultrasound. 2. Mildly increased echogenicity of the cortex can be associated with chronic medical renal disease.
== END | disposition home or self-care (01) ==
LOC: RADUSWWP 07:59
PROVIDERS: ATTEND Internal Medicine
DX: N18.31 Chronic kidney disease, stage 3a (principal)
CPT/HCPCS: 76770

== ENCOUNTER → 2024-06-12 | Outpatient (CLI) | payer MEDICARE ==
--- NOTE | 2024-06-13 10:11 | BD ---
EXAMINATION TYPE: Axial Bone Density DATE OF EXAM: 06/12/2024 CLINICAL HISTORY: 79 years old Female. ICD-10 CODE: M81.0 AGE RELATED OSTEOPO Height: 61.5in Weight: 221lb FRAX RISK QUESTIONS: History of Fracture in Adulthood: yes Secondary Osteoporosis: RISK FACTORS HISTORY OF: MEDICATIONS: Osteoporosis Medications: Which medication: Fosamax How Long: about 3 years EXAM MEASUREMENTS: Bone mineral densitometry was performed using the [employer] System. Bone mineral density as measured about the Lumbar spine is: ----- L1-L4(G/cm2): 1.042 T Score Values are as follows: ----- L1: -1.4 ----- L2: -1.8 ----- L3: -1.3 ----- L4: -0.3 ----- L1-L4: -1.2 Z Score Values are as follows: ----- L1: -0.8 ----- L2: -1.2 ----- L3: -0.7 ----- L4: 0.3 ----- L1-L4: -0.5 Bone mineral density has: Decreased -0.7% since study of: 06-09-22 Bone mineral density about the R hip (g/cm2): 0.980 Bone mineral density about the L hip (g/cm2): 0.702 T Score values are as follows: -----R Neck: -0.8 -----L Neck: -2.4 -----R Total: -0.2 -----L Total: -2.4 Z Score values are as follows: -----R Neck: 0.4 -----L Neck: -1.2 -----R Total: 0.8 -----L Total: -1.4 Bone mineral density has: Decreased -5.5% since study of: 06-09-22 FRAX%s: The graph provided illustrates a 22.3% chance for a major osteoporotic fx and a 6.3% chance f or the hips probability for fx in 10 years time. IMPRESSION: Osteopenia (T Score between -2.5 and -1). There is slightly increased risk of fracture and the patient may be considered for treatment. Re-Screen 2-5 years. NOTE: T-SCORE=SD OF THE YOUNG ADULT MEAN. [facility], , 06/13/2024 10:09 AM
--- NOTE | 2024-06-14 10:04 | MM ---
Reason for Exam: Screening (asymptomatic). Last screening mammogram was performed 12 month(s) ago. Patient History: Menarche at age 15. First Full-Term at age 26. Postmenopausal. Risk Values: Jeimy 5 year model risk: 1.6%. NCI Lifetime model risk: 3.0%. Prior Study Comparison: 05/20/2021 Bilateral Screening Mammogram, [facility]. 06/09/2022 Bilateral MG 3D screening mammo w/cad, [facility]. 06/10/2023 Bilateral MG 3D screening mammo w/cad, [facility]. Tissue Density: There are scattered areas of fibroglandular density. Findings: Analyzed By CAD. There is no suspicious group of microcalcifications or new suspicious mass in either breast. Overall Assessment: Benign, BI-RAD 2 Management: Screening Mammogram of both breasts in 1 year. . Patient should continue monthly self-breast exams. A clinical breast exam by your physician is recommended on an annual basis. This exam should not preclude additional follow-up of suspicious palpable abnormalities. Note on Jeimy scores and lifetime risk: 1. A Jeimy score greater than 3% is considered moderate risk. If this is the case, consider specialist referral to assess eligibility for a risk reducing agent. 2. If overall lifetime risk for the development of breast cancer is 20% or higher, the patient may qualify for future screening with alternating mammogram and breast MRI. [facility], , 06/14/2024 9:54 AM. Electronically signed and approved by: Brian Nieto M.D. Radiologis
== END | disposition home or self-care (01) ==
LOC: RADMAMWWP 14:13
PROVIDERS: ATTEND Family Medicine
DX: Z12.31 Encounter for screening mammogram for malignant neoplasm of breast (principal); M81.0 Age-related osteoporosis without current pathological fracture; M85.89 Other specified disorders of bone density and structure, multiple sites; R92.323 Mammographic fibroglandular density, bilateral breasts; Z78.0 Asymptomatic menopausal state
CPT/HCPCS: 77063; 77067; 77080